=== PATIENT | female | born 1975 | race American Indian/Alaskan Native ===

== ENCOUNTER 2017-03-19 13:16 | Emergency (ER) | payer MEDICAID ==
[2017-03-19 16:23] VITALS: BP 115/76
== END 2017-03-20 02:00 | disposition left against medical advice (07) ==
LOC: ED 13:16
DX: L02.413 Cutaneous abscess of right upper limb (principal); Z53.21 Procedure and treatment not carried out due to patient leaving prior to being seen by health care provider

== ENCOUNTER 2018-10-13 00:31 | Emergency (ER) | payer MEDICAID ==
[2018-10-13 00:42] VITALS: BP 136/92
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
[2018-10-13] MEDS ORDERED: TYLENOL PO ONE (03:19)
[2018-10-13] MEDS ORDERED: IBUPROFEN PO ONE (03:19)
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
== END 2018-10-13 03:50 | disposition home or self-care (01) ==
LOC: ED 00:31
DX: S00.83XA Contusion of other part of head, initial encounter (principal); K04.7 Periapical abscess without sinus; K05.10 Chronic gingivitis, plaque induced; F17.200 Nicotine dependence, unspecified, uncomplicated; Z79.899 Other long term (current) drug therapy; Y04.8XXA Assault by other bodily force, initial encounter; Y93.89 Activity, other specified; Y92.89 Other specified places as the place of occurrence of the external cause; Y99.8 Other external cause status
CPT/HCPCS: 70486; 99283